=== PATIENT | female | born 1995 | race Two or more races ===

== ENCOUNTER 2017-04-19 02:26 | Emergency (ER) | payer OTHER ==
[2017-04-19] MEDS ORDERED: Lidocaine 1% 20 ML MDV INJECT ONE (02:27)
[2017-04-19] MEDS ORDERED: Diphtheria,Pertussis(Acell),Tetanus Vaccine 0.5 ML Syringe IM ONE (02:27)
[2017-04-19] MEDS ORDERED: Bacitracin Oint 1 GM U/D Packet TOP ONE (02:32)
--- NOTE | 2017-04-19 03:00 | EDM.PDOC ---
ED HPI GENERAL MEDICAL PROBLEM - General Chief Complaint: Laceration Stated Complaint: CUT INDEX FINGER ON LT HAND Time Seen by Provider: 04/19/17 02:50 - History of Present Illness INITIAL COMMENTS - FREE TEXT/NARRATIVE: HISTORY AND PHYSICAL: History of present illness: Patient 21-year-old female presents with a laceration second digit left hand occurred when she was cooking tonight the knife. She denies up-to-date tetanus Review of systems: As per history of present illness and below otherwise all systems reviewed and negative. Past medical history: As per history of present illness and as reviewed below otherwise noncontributory. Surgical history: As per history of present illness and as reviewed below otherwise noncontributory. Social history: No reported history of drug or alcohol abuse. Family history: As per history of present illness and as reviewed below otherwise noncontributory. Physical exam: HEENT: Atraumatic, normocephalic, pupils reactive, negative for conjunctival pallor or scleral icterus, mucous membranes moist, throat clear, neck supple, nontender, trachea midline. Lungs: Clear to auscultation, breath sounds equal bilaterally, chest nontender. Heart: S1S2, regular, negative for clicks, rubs, or JVD. Abdomen: Soft, nondistended, nontender. Negative for masses or hepatosplenomegaly. Negative for costovertebral tenderness. Pelvis: Stable nontender. Genitourinary: Deferred. Rectal: Deferred. Extremities: Patient has a moderate that semicircular laceration the volar aspect of the distal aspect of the second digit of her left hand this is approximately 1.5 cm is no tendon involvement seen less neurovascular is unremarkable Neuro: Awake, alert, oriented. Cranial nerves II through XII unremarkable. Cerebellum unremarkable. Motor and sensory unremarkable throughout. Exam nonfocal. Diagnostics: None Therapeutics: Tetanus was updated patient was anesthetized with lidocaine without epinephrine and irrigated with normal saline prepped and draped in sterile manner closed with 4-0 nylon interrupted suture bacitracin was applied Impression: #1 acute injury left hand (laceration) Definitive disposition and diagnosis as appropriate pending reevaluation and review of above. Left Index Pain Score (Numeric/FACES): 5 - Related Data Allergies Allergy/AdvReac Type Severity Reaction Status Date / Time No Known Allergies Allergy Verified 04/19/17 02:28 Home Meds: Home Meds Albuterol [Proventil HFA] 6.7 gm INH ASDIRECTED 04/19/17 [History] Past Medical History - Past Health History Medical/Surgical History: Denies Medical/Surgical History Respiratory History: Reports: Asthma Social & Family History - Family History Family Medical History: Noncontributory - Tobacco Use Smoking Status *Q: Never Smoker - Recreational Drug Use Recreational Drug Use: No ED ROS GENERAL - Review of Systems Review Of Systems: ROS reveals no pertinent complaints other than HPI. ED EXAM, SKIN/RASH Exam: See Below (See dictation) Course - Vital Signs Last Recorded V/S: Last Vital Signs Temp 36.4 C 04/19/17 02:26 Pulse 79 04/19/17 02:26 Resp 18 04/19/17 02:26 BP 108/77 04/19/17 02:26 Pulse Ox 98 04/19/17 02:26 - Orders/Labs/Meds Orders: Active Orders 24 hr Category Date Time Status Vaccines to be Administered [RC] PER UNIT ROUTINE Care 04/19/17 02:28 Active Meds: Medications Discontinued Medications Generic Name Dose Route Start Last Admin Trade Name Mary PRN Reason Stop Dose Admin Bacitracin 1 dose 04/19/17 02:32 04/19/17 02:48 Bacitracin Oint 1 Gm TOP 04/19/17 02:33 1 dose ONETIME ONE Administration Diphtheria/Tetanus/Acell Pertussis 0.5 ml 04/19/17 02:27 04/19/17 02:46 Adacel IM 04/19/17 02:28 0.5 ml .ONCE ONE Administration Lidocaine HCl 20 ml 04/19/17 02:27 04/19/17 02:47 Xylocaine 1% INJECT 04/19/17 02:28 20 ml ONETIME ONE Administration Departure - Departure Time of Disposition: 02:59 Disposition: Home, Self-Care 01 Condition: Good Clinical Impression: Laceration - Discharge Information Referrals: PCP,None [Primary Care Provider] - Additional Instructions: The following information is given to patients seen in the emergency department who are being discharged to home. This information is to outline your options for follow-up care. We provide all patients seen in our emergency department with a follow-up referral. The need for follow-up, as well as the timing and circumstances, are variable depending upon the specifics of your emergency department visit. If you don't have a primary care physician on staff, we will provide you with a referral. We always advise you to contact your personal physician following an emergency department visit to inform them of the circumstance of the visit and for follow-up with them and/or the need for any referrals to a consulting specialist. The emergency department will also refer you to a specialist when appropriate. This referral assures that you have the opportunity for followup care with a specialist. All of these measure are taken in an effort to provide you with optimal care, which includes your followup. Under all circumstances we always encourage you to contact your private physician who remains a resource for coordinating your care. When calling for followup care, please make the office aware that this follow-up is from your recent emergency room visit. If for any reason you are refused follow-up, please contact the [facility] emergency department at and asked to speak to the emergency department charge nurse. Follow-up primary medical doctor 1-2 days for wound check and suture removal 10- 14 days return as needed as discussed - My Orders Last 24 Hours: My Active Orders 04/19/17 02:28 Vaccines to be Administered [RC] PER UNIT ROUTINE - Assessment/Plan Last 24 Hours: My Active Orders 04/19/17 02:28 Vaccines to be Administered [RC] PER UNIT ROUTINE
== END 2017-04-19 03:16 | disposition home or self-care (01) ==
LOC: MW.ED 02:26
DX: S61.211A Laceration without foreign body of left index finger without damage to nail, initial encounter (principal); Z23 Encounter for immunization; W26.0XXA Contact with knife, initial encounter
CPT/HCPCS: 12001; 90471; 90715; 99282; 99282-25